=== PATIENT | female | born 1965 | race Caucasian/White ===

== ENCOUNTER 2020-09-09 16:22 | Emergency (ER) | payer BC, SELFPAY ==
--- NOTE | ~2020-09-09 | XR_ITS ---
EXAMINATION: XR chest 2V DATE: 09/09/2020 17:27 INDICATION: Chest tightness. Shortness of breath. TECHNIQUE: Frontal and lateral views of the chest were obtained. COMPARISON: None. FINDINGS: The chest demonstrates clear lungs without pneumonia, pleural effusion, or pneumothorax. Th e heart size is normal. Surgical clips in the right upper quadrant are likely from cholecystectomy. IMPRESSION: 1. No acute cardiopulmonary disease. Reviewed, dictated and finalized at location A. RAM PROJECT MANAGER
[2020-09-09 16:22] VITALS: BP 141/80; PULSE 54; RESP 18; TEMP 36.8; O2SAT 100
[2020-09-09 17:00] VITALS: BP 137/75; PULSE 52
--- NOTE | 2020-09-09 17:01 | ECG_ITS ---
Measurements Intervals [place] Rate: 55 P: 62 MD: 147 QRS: 40 QRSD: 86 T: 50 QT: 416 QTc: 401 Interpretive Statements SINUS BRADYCARDIA BASELINE ARTIFACT- III, AVF BORDERLINE ECG Electronically Signed On 09-09-2020 18:37:42 BACK END DEVELOPER by Go Mullen D.O.
[2020-09-09 17:02] VITALS: BP 119/72; PULSE 76
[2020-09-09 17:17] LABS: Basophils Absolute Auto 0.05 K/mm3 (0.00-0.10); Basophils Percent Auto 0.8 % (0.0-1.0); Eosinophils Absolute Auto 0.25 K/mm3 (0.02-0.50); Eosinophils Percent Auto 3.9 % (1.0-6.0); Hematocrit 37.7 % (35.0-49.0); Hemoglobin 12.4 g/dL (12.0-15.0); Immature Granulocyte Absolute 0.02 K/mm3 (0.00-0.00); Immature Granulocyte Percent A 0.3 % (0.0-0.0); Lymphocytes Percent Auto 40.9 % (18.0-42.0); Mean Corpuscular HGB Conc 32.9 g/dL (32.0-36.0); Mean Corpuscular Hemoglobin 31.2 pg (27.0-31.0); Mean Platelet Volume 10.1 fl (9.2-11.8); Monocytes Percent Auto 6.3 % (2.0-11.0); Neutrophils Percent Auto 47.8 % (50.0-70.0); Platelet Count Result 192 K/mm3 (150-420); Red Blood Count 3.97 M/mm3 (4.20-5.40); White Blood Count 6.4 K/mm3 (4.8-10.8)
[2020-09-09 17:43] LABS: Alanine Aminotransferase 32 U/L (14-59); Albumin Level 3.8 g/dL (3.4-5.0); Alkaline Phosphatase 62 U/L (46-116); Anion Gap 9 mmol/L (8-16); Aspartate Amino Transferase 15 U/L (15-37); Bilirubin,Total 0.2 mg/dL (0.00-1.00); Blood Urea Nitrogen 20 mg/dL (7-18); Calcium 8.6 mg/dL (8.5-10.1); Carbon Dioxide 29 mmol/L (21-32); Chloride 105 mmol/L (98-108); Estimated CRCL calculation 55 ml/min; Estimated Glomerular Filt Rate > 60; Glucose 88 mg/dL (70-99); Osmolality Calculated 297 mOsm/kg (285-295); Potassium 3.8 mmol/L (3.5-5.1); Sodium 143 mmol/L (136-145); Thyroid Stimulating Hormone 2.04 uIU/mL (0.36-3.74)
[2020-09-09 17:44] LABS: Cholesterol 151 mg/dL (0-200); HDL Direct 53 mg/dL (40-60); LDL Cholesterol Calculated 79 mg/dL (<130); Triglycerides 95 mg/dL (0-150)
[2020-09-09 17:46] LABS: Troponin I < 0.02 ng/mL (0.00-0.056)
[2020-09-09] MEDS: MECLIZINE HCL 25 MG TABLET PO (18:12)
--- NOTE | 2020-09-09 18:16 | ED.DIZZY ---
HPI - Dizziness General Chief Complaint: Dizziness Stated Complaint: lightheaded/dizzy Source: patient Mode of arrival: ambulatory Limitations: no limitations History of Present Illness HPI Narrative: This is a 54-year-old female presents with some no significant past medical history presents with a five-day history of dizziness with a fullness in frontal sinus area with bilateral ear pressure with drainage from the nose and a postnasal drip with some mild shortness of breath with no nausea vomiting no abdominal pain no chest pain or pressure no fever chills. MD elicited complaint: dizziness Onset (ago): day(s) Timing: gradual onset Severity: moderate Description: sense of movement and lightheadedness History of similar symptoms: No Exacerbating factors: change in body position Relieving factors: remaining still Associated symptoms: denies other symptoms Related Data Home Medications Medication Instructions Recorded Confirmed lansoprazole 30 mg PO DAILY 09/09/20 09/09/20 Allergies Allergy/AdvReac Type Severity Reaction Status Date / Time No Known Allergies Allergy Verified 09/09/20 17:25 Review of Systems Review of Systems: All systems reviewed & are unremarkable except as noted in HPI and below PMFSH Past Medical History Medical History Patient denies medical problems Exam Const: General: no acute distress and alert Orientation/consciousness: patient oriented x3 HENMT: Head: normal to inspection Other: frontal sinus tenderness palpation with bilateral ear dullness Eyes: Conjunctivae: conjunctivae normal Pupils: Equal, round and reactive pupils present Neck: Neck: normal visual inspection Chest: Chest palpation & inspection: normal inspection of the chest Resp: Effort & Inspection: normal respiratory effort Cardio: Rate: regular rate and bradycardic Rhythm: regular rhythm GI: Auscultation: normal bowel sounds : General: Yes no CVA tenderness Skin: General skin exam: normal color Rashes: no rashes Neuro: General: patient oriented x3, moves all extremities, no meningeal signs and no focal motor deficits Extrem: General: normal to inspection and no pedal edema Psych: Mental Status: mental status grossly normal Course Course Emergency Course: patient received a dose of meclizine and dizziness had improved, will give a dose of azithromycin 500 mg for sinus infection, reviewed results of chest x-ray and lab work with patient and family. Vital Signs Vital signs: Vital Signs Temperature 36.8 C 09/09/20 16:22 Pulse Rate 54 L 09/09/20 16:22 Respiratory Rate 18 09/09/20 16:22 Blood Pressure 141/80 H 09/09/20 16:22 Pulse Oximetry 100 09/09/20 16:22 Temperature 36.8 C 09/09/20 16:22 Pulse Rate 76 09/09/20 17:02 Respiratory Rate 18 09/09/20 16:22 Blood Pressure 119/72 09/09/20 17:02 Pulse Oximetry 100 09/09/20 16:22 MDM - Dizziness Lab Data Result diagrams: 09/09/20 17:12 09/09/20 17:12 Labs: Lab Results 09/09/20 09/09/20 09/09/20 Range/Units 17:12 17:12 17:12 WBC 6.4 (4.8-10.8) K/mm3 RBC 3.97 L (4.20-5.40) M/mm3 Hgb 12.4 (12.0-15.0) g/dL Hct 37.7 (35.0-49.0) % MCV 95.0 (78.0-102.0) fL MCH 31.2 H (27.0-31.0) pg MCHC 32.9 (32.0-36.0) g/dL RDW 12.0 (11.6-14.4) % Plt Count 192 (150-420) K/mm3 MPV 10.1 (9.2-11.8) fl Immature Gran % (Auto) 0.3 H (0.0-0.0) % Neut % (Auto) 47.8 L (50.0-70.0) % Lymph % (Auto) 40.9 (18.0-42.0) % [place] % (Auto) 6.3 (2.0-11.0) % Eos % (Auto) 3.9 (1.0-6.0) % Baso % (Auto) 0.8 (0.0-1.0) % Lymph # (Auto) 2.60 (1.10-4.50) K/mm3 [place] # (Auto) 0.40 (0.10-0.90) K/mm3 Eos # (Auto) 0.25 (0.02-0.50) K/mm3 Baso # (Auto) 0.05 (0.00-0.10) K/mm3 Abs Immat Gran (auto) 0.02 H (0.00-0.00) K/mm3 Absolute Neuts (auto) 3.0 (1.7-7.2) K/mm3 Abso
[2020-09-09] MEDS: AZITHROMYCIN 250 MG TABLET 500 MG PO (18:21)
[2020-09-09 18:30] VITALS: BP 146/82; PULSE 65; RESP 21; O2SAT 98
== END 2020-09-09 18:30 | disposition home or self-care (01) ==
PROVIDERS: Emergency Provider Emergency Medicine; PCP Family Medicine
DX: R42 Dizziness and giddiness (principal)
CPT/HCPCS: 36415; 71046; 80053; 80061; 84443; 84484; 85025; 93005; 99283; 99284; A9270

== ENCOUNTER 2022-06-16 10:49 | Outpatient (CLI) | payer BC, SELFPAY ==
--- NOTE | ~2022-06-16 | XR_ITS ---
EXAMINATION: XR chest 2V 06/16/2022 11:13 INDICATION: Covid 19. Dyspnea. PROCEDURE: 2 view chest COMPARISON: 09/09/2020 FINDINGS: The lungs are clear. The cardiomediastinal silhouette is within normal limits. There are no pleural effusions. There is no pneumothorax suspected. IMPRESSION: 1: NO ACUTE CARDIOPULMONARY DISEASE. Reviewed, dictated and finalized at location A.
[2022-06-16 11:15] LABS: Hematocrit 37.5 % (35.0-49.0); Hemoglobin 12.7 g/dL (12.0-15.0); Mean Corpuscular HGB Conc 33.9 g/dL (32.0-36.0); Mean Corpuscular Volume 94.5 fL (78.0-102.0); Mean Platelet Volume 10.7 fl (9.2-11.8); Platelet Count Result 170 K/mm3 (150-420); Red Blood Count 3.97 M/mm3 (4.20-5.40); Red Cell Distribution Width 11.7 % (11.6-14.4); White Blood Count 5.2 K/mm3 (4.8-10.8)
[2022-06-16 11:53] LABS: Alanine Aminotransferase 38 U/L (14-59); Albumin Level 3.7 g/dL (3.4-5.0); Alkaline Phosphatase 81 U/L (46-116); Anion Gap 9 mmol/L (8-16); Aspartate Amino Transferase 22 U/L (15-37); Bilirubin,Total 0.8 mg/dL (0.00-1.00); Blood Urea Nitrogen 18 mg/dL (7-18); Calcium 8.6 mg/dL (8.5-10.1); Carbon Dioxide 27 mmol/L (21-32); Chloride 110 mmol/L (98-108); Estimated Glomerular Filt Rate > 60; Glucose 84 mg/dL (70-99); Osmolality Calculated 302 mOsm/kg (285-295); Potassium 4.3 mmol/L (3.5-5.1); Sodium 146 mmol/L (136-145); Total Protein 6.6 g/dL (6.4-8.2); Troponin I 6.7 ng/L (0.00-60.4)
== END 2022-06-16 10:50 | disposition home or self-care (01) ==
LOC: CHSLAB 10:51
PROVIDERS: PCP Family Medicine; Visit Provider Family Medicine
DX: U07.1 COVID-19 (principal)
CPT/HCPCS: 36415; 71046; 80053; 84484; 85027

== ENCOUNTER 2022-08-07 14:12 | Outpatient (CLI) | payer BC, SELFPAY ==
--- NOTE | ~2022-08-07 | DEXA_ITS ---
Bone Density Report Name: MAKAYLA PATEL Age: 56 Sex: Female Ethnicity: White Date of : 1965 Indication: postmenopausal; screening for osteoporosis; height loss; prior fracture; Referring Provider: Magda, Nadeem Study: Bone densitometry was performed. Exam Date: August 07, 2022 Accession number: [id number] Bone Density: Region BMD T-score Z-score Classification AP Spine(L1-L4) 0.944 -0.9 0.2 Normal Femoral Neck (Left) 0.828 -0.2 0.9 Normal Total Hip (Left) 0.921 -0.2 0.5 Normal Femoral Neck (Right) 0.798 -0.5 0.6 Normal Total Hip (Right) 0.859 -0.7 0.0 Normal Femoral Neck Mean 0.813 -0.3 0.8 Normal Total Hip Mean 0.890 -0.4 0.3 Normal World Health Organization criteria for BMD impression classify patients as: Normal (T-score at or above -1.0), Osteopenia (T-score between -1.0 and -2.5), or Osteoporosis (T-score at or below -2.5). 10-year Fracture Risk: FRAX not reported because: All T-scores for Spine Total, Hip Total, Femoral Neck at or above -1.0 Clinical Information Provided by Patient: Has had a low trauma fracture Smokes Has used the following medications: Vitamin D, Calcium Patient maximum height was 63 Drinks caffeinated beverages Onset of menses at age 13 Number of children 3 Impression: The patient has normal bone mass. The patient has risk factors, including: smoking, previous fracture. Discussion: BONE DENSITY IS ABOVE THE MINIMUM DESIRABLE LEVEL AT ALL SKELETAL SITES TESTED. This patient?s bone mineral density is above the minimum desirable level (T-score -1.0 or better) at all sites measured. The patient should follow a healthful lifestyle (good nutrition with adequate calcium and vitamin D, and appropriate weight-bearing exercise). Follow-Up: Consider repeating this study in 5 years or sooner if there is some new clinical indication. Reported by: Dr. Jorge Sykes on 08/07/2022 2:34:00 PM. Reviewed, dictated and finalized [facility]
== END 2022-08-07 14:13 | disposition home or self-care (01) ==
LOC: CHSIMG 14:13
PROVIDERS: PCP Family Medicine; Visit Provider Family Medicine
DX: Z78.0 Asymptomatic menopausal state (principal)
CPT/HCPCS: 77080

== ENCOUNTER 2024-10-19 14:57 | Outpatient (CLI) | payer BC, SELFPAY ==
--- NOTE | ~2024-10-19 | DEXA_ITS ---
Bone Density Report Name: MAKAYLA PATEL Age: 58 Sex: Female Ethnicity: White Date of : 1965 Indication: postmenopausal; screening for osteoporosis; prior fracture; Referring Provider: Magda, Nadeem Study: Bone densitometry was performed. Exam Date: October 19, 2024 Accession number: [id number] Bone Density: Region BMD T-score Z-score Classification AP Spine(L1-L4) 0.914 -1.2 0.1 Osteopenia Femoral Neck (Left) 0.748 -0.9 0.3 Normal Total Hip (Left) 0.887 -0.4 0.4 Normal Femoral Neck (Right) 0.669 -1.6 -0.4 Osteopenia Total Hip (Right) 0.847 -0.8 0.1 Normal Femoral Neck Mean 0.709 -1.3 -0.1 Osteopenia Total Hip Mean 0.867 -0.6 0.2 Normal World Health Organization criteria for BMD impression classify patients as: Normal (T-score at or above -1.0), Osteopenia (T-score between -1.0 and -2.5), or Osteoporosis (T-score at or below -2.5). 10-year Fracture Risk(1): Major Osteoporotic Fracture 13% Hip Fracture 2.1% Reported Risk Factors: [place] (), Neck BMD=0.669, BMI=29.2, previous fracture, smoking (1) FRAX(R) Version 3.08. Fracture probability calculated for an untreated patient. Fracture probability may be lower if the patient has received treatment. Previous Exams: Region Exam Age BMD T-score BMD Change BMD Change Date g/cm2 vs Baseline vs Previous AP Spine (L1-L4) 10/19/2024 58 0.914 -1.2 -0.030 (-3.2%) -0.030 (-3.2%) 08/07/2022 56 0.944 -0.9 Total Hip(Left) 10/19/2024 58 0.887 -0.4 -0.034 (-3.7%) -0.034 (-3.7%) 08/07/2022 56 0.921 -0.2 Total Hip(Right) 10/19/2024 58 0.847 -0.8 -0.011 (-1.3%) -0.597 (-41.3% 10/19/2024 58 1.444 4.1 0.585 (68.2%)* 0.585 (68.2%)* 08/07/2022 56 0.859 -0.7 *Denotes significance at 95% confidence level, LSC for AP Spine = 0.022 g/cm2, LSC for Total Hip = 0.027 g/cm2 Clinical Information Provided by Patient: Has had a low trauma fracture Smokes Has used the following medications: Vitamin D, Calcium, multi Patient maximum height was 63 Menopause Age: 51 No regular weight bearing exercise Drinks caffeinated beverages Onset of menses at age 13 Number of children 3 Impression: The patient has low bone mass, based on the Right Femoral Neck T-score. The patient has risk factors, including: smoking, previous fracture. The BMD for the AP Spine (L1-L4) decreased, changing by -3.2% since the last DXA exam. The BMD for the Total Hip(Left) decreased, changing by -3.7% since the last DXA exam. The BMD for the Total Hip(Right) decreased, changing by -41.3% since the last DXA exam. Discussion: BONE DENSITY IS LOW AT ONE OR MORE SKELETAL SITES. This patient's lowest T-score is low at one or more skeletal sites. It meets the World Health Organization's (WHO) criteria for ?low bone mass? (T-score between -1.0 and -2.5). The patient's 10-year risk of fracture as calculated by FRAX is less than the threshold where pharmacological therapy is recommended by the National Osteoporosis Foundation (NOF). However, all treatment decisions require clinical judgment and consideration of individual patient factors, including patient preferences, comorbidities, previous drug use, risk factors not captured in the FRAX model (e.g., frailty, falls, vitamin D deficiency, increased bone turnover, interval significant decline in bone density) and possible under or overestimation of fracture risk by FRAX. The patient should follow a healthful lifestyle (good nutrition with adequate calcium and vitamin D, and appropriate weight-bearing exercise). Follow-Up: Consider repeating this study in 2 years to reassess this patient's status, or sooner if there is some new clinical indication. Reported by: MALINDA on 10/19/2024 3:19:00 PM. Reviewed, dictated and finalized at location A.
== END 2024-10-19 14:58 | disposition home or self-care (01) ==
LOC: CHSIMG 14:59
PROVIDERS: PCP Family Medicine; Visit Provider Family Medicine
DX: Z78.0 Asymptomatic menopausal state (principal); M85.89 Other specified disorders of bone density and structure, multiple sites
CPT/HCPCS: 77080